=== PATIENT | male | born 1985 | race Caucasian/White ===

== ENCOUNTER 2020-05-13 05:52 | Emergency (ER) | payer OTHER, SELFPAY ==
[2020-05-13 06:00] VITALS: BP 114/66; PULSE 64; RESP 28; TEMP 36.8; O2SAT 100; BMI 23.6
--- NOTE | 2020-05-13 06:54 | ED_ITS ---
HPI - General Adult General Chief complaint: ETOH/Substance Use Stated complaint: AMS Time Seen by Provider: 05/13/20 06:42 Source: EMS Mode of arrival: EMS Limitations: altered mental status History of Present Illness HPI narrative: patient comes to the emergency room with altered mental status. Patient was found outside his home screaming I have been poisoned . The patient's mother called the hospital to give history, the patient is known to be a drug abuser. When EMS arrived, heroin and paraphernalia were found at the patient's side. Patient is unable to give any history, patient actively vomiting, not answering any questions, seems confused. Per EMS, the patient was not given Narcmaryse ROBBINS complaint: substance abuse Related Data Allergies Allergy/AdvReac Type Severity Reaction Status Date / Time No Known Allergies Allergy Unverified 04/07/20 15:46 [No Known Allergies*] Review of Systems Review of Systems: Yes unobtainable due to endotracheal tube and Unobtainable due to mental status PMFSH Past Medical History Medical History (Updated 05/13/20 @ 14:01 by Krista Blount MD) No known health problems Substance abuse Social History Social History Use of substances other than those prescribed or required for medical reasons: Yes Advance Directives: No Physical Exam Vital Signs: Vital Signs: Vital Signs Temp Pulse Resp BP Pulse Ox 05/13/20 12:00 97.4 F 56 15 98/59 L 96 05/13/20 09:58 98.3 F 44 L 16 101/76 05/13/20 08:32 47 L 13 99/40 L 05/13/20 06:00 98.3 F 64 28 H 114/66 100 Body Mass Index 23.6 Appearance: Alert. actively vomiting, not answering any questions, altered mental status Eyes: Pupils equal, round and reactive to light. ENT: Pharynx normal. Neck: Normal inspection. Neck supple. No lymph nodes noted. No crepitus CVS: Normal heart rate and rhythm. Pulses normal. Normal S1 and S2 Respiratory: No respiratory distress. Breath sounds normal. No Wheezing. respiratory rate 30 Abdomen: Soft and nontender. No rigidity. No distention. good BS x4 Skin: Skin warm, mildly diaphoretic Normal skin color. Normal skin turgor. Extremities: No lower extremity edema. No lower extremity edema. No Lacerations. No Rash Neuro: altered mental status, awake No motor deficit. Moving all extermities. Course Course Course Narrative: patient slept until now, 14:00, patient is alert and oriented x3, eating and drinking well, has steady gait. Patient ready for discharge Medical Decision Making Lab Data Result diagrams: 05/13/20 08:30 05/13/20 08:30 Labs: Lab Results 05/13/20 05/13/20 05/13/20 Range/Units 08:30 08:30 08:30 WBC 10.0 (4.8-10.8) X10*3/uL RBC 4.47 L (4.60-5.80) X10*6/uL Hgb 12.7 L (14.0-18.0) g/dl Hct 37.4 L (42-52) % MCV 83.7 (80-98) fL MCH 28.4 (27.0-33.0) pg MCHC 34.0 (31.0-36.0) g/dl RDW 14.6 (11.0-16.0) % Plt Count 216 (160-400) X10*3/uL MPV 11.2 (9.4-12.4) fL Immature Gran % (Auto) 0.4 (0.0-0.4) % Neut % (Auto) 83.0 H (45-73) % Lymph % (Auto) 9.1 L (20-40) % [place] % (Auto) 7.1 (2-11) % Eos % (Auto) 0.2 (0-4) % Baso % (Auto) 0.2 (0-2) % Lymph # (Auto) 0.9 L (1.2-4.9) X10*3/uL [place] # (Auto) 0.7 (0.1-1.2) X10*3/uL Eos # (Auto) 0.0 (0.0-0.4) X10*3/uL Baso # (Auto) 0.0 (0.0-0.2) X10*3/uL Abs Immat Gran (auto) 0.04 H (0.00-0.03) X10*3/uL Absolute Neuts (auto) 8.3 (2.0-8.3) X10*3/uL Absolute Nucleated RBC 0.000 (0.0-0.012) X10*3/uL Nucleated RBC % (auto) 0.0 (0.0-0.2) /100WBC Sodium 141 (135-145) mmol/L Potassium 3.4 (3.3-5.1) mmol/l Chloride 102 (96-108) mmol/L Carbon Dioxide 28 (22-29) mmol/L Anion Gap 14 (12-20) BUN 21 H (9-16) mg/dL Creatinine 0.94 (0.5-1.4) mg/dL Estim Creat Clear Calc 112.1 Estimated GFR > 60 Random Glucose 131 H (60-115) mg/dL Calcium 8.8 (8.4-10.2) mg/dL Total Bilirubin 0.5 (0.0-1.0) mg/dL Direct Bilirubin (0.0-0.5) mg/dL AST 23 (5-37) U/L ALT 17 (0-40) U/L Alkaline Phosphatase 87 (39-117) U/L Total Protein 7.1 (6.5-8.0) g/dL Albumin 3.9 (3.5-5.0) g/dL Ethyl Alcohol < 10 mg/dL 05/13/20 Range/Units 08:30 WBC (4.8-10.8) X10*3/uL RBC (4.60-5.80) X10*6/uL Hgb (14.0-18.0) g/dl Hct (42-52) % MCV (80-98) fL MCH (27.0-33.0) pg MCHC (31.0-36.0) g/dl RDW (11.0-16.0) % Plt Count (160-400) X10*3/uL MPV (9.4-12.4) fL Immature Gran % (Auto) (0.0-0.4) % Neut % (Auto) (45-73) % Lymph % (Auto) (20-40) % [place] % (Auto) (2-11) % Eos % (Auto) (0-4) % Baso % (Auto) (0-2) % Lymph # (Auto) (1.2-4.9) X10*3/uL [place] # (Auto) (0.1-1.2) X10*3/uL Eos # (Auto) (0.0-0.4) X10*3/uL Baso # (Auto) (0.0-0.2) X10*3/uL Abs Immat Gran (auto) (0.00-0.03) X10*3/uL Absolute Neuts (auto) (2.0-8.3) X10*3/uL Absolute Nucleated RBC (0.0-0.012) X10*3/uL Nucleated RBC % (auto) (0.0-0.2) /100WBC Sodium (135-145) mmol/L Potassium (3.3-5.1) mmol/l Chloride (96-108) mmol/L Carbon Dioxide (22-29) mmol/L Anion Gap (12-20) BUN (9-16) mg/dL Creatinine (0.5-1.4) mg/dL Estim Creat Clear Calc Estimated GFR Random Glucose (60-115) mg/dL Calcium (8.4-10.2) mg/dL Total Bilirubin 0.5 (0.0-1.0) mg/dL Direct Bilirubin 0.2 (0.0-0.5) mg/dL AST 26 (5-37) U/L ALT 18 (0-40) U/L Alkaline Phosphatase 87 (39-117) U/L Total Protein 7.2 (6.5-8.0) g/dL Albumin 3.9 (3.5-5.0) g/dL Ethyl Alcohol mg/dL Discharge Plan Discharge Clinical Impression: Substance abuse Patient Disposition: Home, Self-Care Instructions: Polysubstance Abuse (ED) Additional Instructions: please stop using drugs. Please follow-up with your primary care physician tomorrow. If you have any worsening or new symptoms, please return to the emergency room or call 911
[2020-05-13] MEDS: ondansetron HCL 4 MG/2 ML VIAL IVPUSH (07:00)
[2020-05-13] MEDS: 0.9 % Sodium Chloride 1,000 ML 999 ML IVCONT ×2 (07:00→10:02)
--- NOTE | 2020-05-13 07:00 | PC.NURSE ---
PT N/V MODERATE AMT OF FOOD PARTICLES. SLIGHTLY DIAPHORETIC. AWARE.
--- NOTE | 2020-05-13 07:41 | PC.NURSE ---
ptp vn/v mod amt of food particles again with lots of sputum, pt is diaphoretic. md aware to be med with phenergan 12.5mg.
--- NOTE | 2020-05-13 07:46 | PC.NURSE ---
phenergan 12.5mg scanned x 2 (states med is not on pt profile).
[2020-05-13 08:32] VITALS: BP 99/40; PULSE 47; RESP 13
[2020-05-13 08:41] LABS: MANUAL DIFF FLAG NO
[2020-05-13 08:46] LABS: Basophils Percent Auto 0.2 % (0-2); Eosinophils Percent Auto 0.2 % (0-4); Hematocrit 37.4 % (42-52); Hemoglobin 12.7 g/dl (14.0-18.0); Imm Gran Abs Auto 0.04 X10*3/uL (0.00-0.03); Imm Gran Pct Auto 0.4 % (0.0-0.4); Lymphocytes Absolute Auto 0.9 X10*3/uL (1.2-4.9); Lymphocytes Percent Auto 9.1 % (20-40); Mean Corpuscular Hemoglobin 28.4 pg (27.0-33.0); Mean Corpuscular Volume 83.7 fL (80-98); Mean Platelet Volume 11.2 fL (9.4-12.4); Monocytes Absolute Auto 0.7 X10*3/uL (0.1-1.2); Monocytes Percent Auto 7.1 % (2-11); Neutrophils Absolute Auto 8.3 X10*3/uL (2.0-8.3); Platelet Count 216 X10*3/uL (160-400); Red Blood Count 4.47 X10*6/uL (4.60-5.80); Red Cell Distribution Width 14.6 % (11.0-16.0)
[2020-05-13 09:07] LABS: Ethanol < 10 mg/dL
[2020-05-13 09:10] LABS: Alanine Aminotransferase 17 U/L (0-40); Albumin Level 3.9 g/dL (3.5-5.0); Alkaline Phosphatase 87 U/L (39-117); Anion Gap 14 (12-20); Aspartate Amino Transferase 23 U/L (5-37); Bilirubin Total 0.5 mg/dL (0.0-1.0); Blood Urea Nitrogen 21 mg/dL (9-16); Calcium 8.8 mg/dL (8.4-10.2); Carbon Dioxide 28 mmol/L (22-29); Chloride 102 mmol/L (96-108); Creatinine Clr Calc Pharmacy 112.1; Estimated Glomerular Filt Rate > 60; Glucose Random 131 mg/dL (60-115); Potassium 3.4 mmol/l (3.3-5.1); Sodium 141 mmol/L (135-145); Total Protein 7.1 g/dL (6.5-8.0)
[2020-05-13 09:11] LABS: Alanine Aminotransferase 18 U/L (0-40); Albumin Level 3.9 g/dL (3.5-5.0); Alkaline Phosphatase 87 U/L (39-117); Aspartate Amino Transferase 26 U/L (5-37); Bilirubin Direct 0.2 mg/dL (0.0-0.5); Bilirubin Total 0.5 mg/dL (0.0-1.0); Total Protein 7.2 g/dL (6.5-8.0)
[2020-05-13 09:58] VITALS: BP 101/76; PULSE 44; RESP 16; TEMP 36.8
[2020-05-13 12:00] VITALS: BP 98/59; PULSE 56; RESP 15; TEMP 36.3; O2SAT 96
--- NOTE | 2020-05-13 13:20 | PC.NURSE ---
pt tolerated po fluids and saltines well. aware.
[2020-05-13 13:57] VITALS: BP 121/67; PULSE 57; RESP 13; TEMP 36.7; O2SAT 97
--- NOTE | 2020-05-13 15:03 | PC.NURSE ---
PT PROVDED D/C PAPERWORK BY VIVIANE QUINTANA, PT REFUSING TO LEAVE, SECURITY TO BEDSIDE TO ENCOURAGE PT TO LEAVE ON OWN ACCORD, PT CONTINUES TO REFUSE, [facility] CONTACTED TO D/C PT.
== END 2020-05-13 16:18 | disposition home or self-care (01) ==
PROVIDERS: Student in an Organized Health Care Education/Training Program; Emergency Provider Emergency Medicine
DX: F19.10 Other psychoactive substance abuse, uncomplicated (principal)
CPT/HCPCS: 36415; 80053; 80076; 80320; 82248; 85025; 96361; 96374; 96375; 99284; J2405

== ENCOUNTER 2020-11-17 18:31 | Emergency (ER) | payer OTHER, SELFPAY ==
--- NOTE | ~2020-11-17 | US_ITS ---
EXAMINATION: US ABDOMEN LIMITED CLINICAL INFORMATION: Elevated liver enzymes. COMPARISON: None TECHNIQUE: Real-time imaging of the right upper quadrant abdominal viscera. FINDINGS: PANCREAS: Normal. LIVER: Normal. The liver is normal in size. The liver contour is normal. Parenchymal echogenicity is normal. No focal hepatic lesion. There is no intrahepatic biliary duct dilatation seen. GALLBLADDER: The gallbladder is contracted without evidence of stones, sludge, polyps, wall thickening or pericholecystic fluid. COMMON BILE DUCT: Normal in caliber measuring 0.4 cm in diameter. RIGHT KIDNEY: [place] 0.7 x 0.4 x 0.6 cm simple cyst.. No hydronephrosis. No renal calculi or solid parenchymal lesions. The kidney measures 10.9 cm in maximum dimension. FREE FLUID: None. US/US abdomen limited IMPRESSION: Normal appearance of the liver. Subcentimeter simple cyst of the right kidney. No follow-up recommended.
[2020-11-17 19:33] VITALS: BP 130/78; PULSE 83; RESP 16; TEMP 36.3; O2SAT 99; BMI 24.3
--- NOTE | 2020-11-17 21:09 | PC.NURSE ---
Leatha Goyal,SCIENTOLOGIST at bedside for primary evaluation at this time.
--- NOTE | 2020-11-17 21:16 | PC.NURSE ---
Per provider, plan for discharge with follow up with GI specialist outpatient. Family at bedside, pt remains calm/cooperative/pleasant.
--- NOTE | 2020-11-17 21:18 | ED.GENADULT ---
HPI - General Adult General Source: patient, family and RN notes reviewed Mode of arrival: ambulatory Limitations: no limitations History of Present Illness HPI narrative: 35 years old male here today for complaining of rectal pain. Patient reports that the pain is so severe sometimes that he passes out from it. Denies rectal bleed or melena. Reports long history of constipation on stool softeners and laxative. Patient reports that his stools are sometimes soft and sometimes hard. Patient reports that this is been going on for some time. Patient reports that he has a family history of cancer with his uncle and his mother. His mother had a cervical cancer. His mother has a history of hemorrhoids. Related Data Previous Rx's Medication Instructions Recorded hydrocortisone [Anusol-HC] 1 appl MI BEDTIME PRN #30 g 11/18/20 hydrocortisone acetate [Anusol-HC] 25 mg MI DAILY PRN #12 ea 11/18/20 Allergies Allergy/AdvReac Type Severity Reaction Status Date / Time No Known Allergies Allergy Verified 11/17/20 19:37 [No Known Allergies*] Review of Systems Constitutional: Constitutional: Denies weight gain and Denies weight loss Cardiovascular: Cardiovascular: Reports no additional cardiovascular complaints Respiratory: Respiratory: Reports no additional respiratory complaints Gastrointestinal: Gastrointestinal: Denies abdominal pain, Denies belching, Denies melena, Denies bloating, Denies change in bowel habits, Denies dyspepsia, Denies heartburn, Denies nausea, Denies vomiting and Reports other (Rectal pain) Neurologic: Reports system reviewed and no additional complaints, except as documented Psychiatric: Psychiatric: Reports no additional psychiatric complaints PMFSH Past Medical History Medical History (Updated 11/19/20 @ 00:01 by Background Daemon) No known health problems Substance abuse Social History Social History Alcohol intake: never Substance Use Type: Marijuana Physical Exam Vital Signs: Vital Signs: Last Vital Signs Temp 97.4 F 11/17/20 19:33 Pulse 83 11/17/20 19:33 Resp 16 11/17/20 19:33 BP 130/78 11/17/20 19:33 Pulse Ox 99 11/17/20 19:33 Body Mass Index 24.3 Const: General: healthy appearing, no acute distress and well developed Nutritional Appearance: well nourished Orientation/consciousness: patient oriented x3 Neck: Neck: Yes normal visual inspection, Yes full ROM and Yes trachea midline Thyroid: Thyroid normal Resp: Auscultation: clear to auscultation bilaterally Cardio: Rate: regular rate Rhythm: regular rhythm GI: Inspection: Yes normal to inspection and No distended Palpation (GI): No hepatosplenomegaly present Auscultation: normal bowel sounds Rectal Exam - Male: Yes Internal hemorrhoid(s) present Skin: General skin exam: elasticity normal, turgor normal and dry skin Neuro: General: patient oriented x3 Course Course Course Narrative: 35-year-old male here today for complaining of rectal pain. He has a history of constipation. Denies any abdominal pain, discomfort, bloating, nausea, diarrhea. Patient reports that occasionally he has so much pain in his rectum that he feels like fainting. Reevaluation(s) Reevaluation #1: CBCs normal, patient's liver enzymes elevated: Total bili 2.5, AST 398, ALT 494, alk phos 273. Will alter abdominal ultrasound. Patient denies having any abdominal discomfort. Assessment negative for jaundice, pruritus. Patient denies drinking alcohol. Reevaluation #2: Abdominal ultrasound without acute findings. Discussed with patient his abnormal liver enzymes. Patient will follow up with PCP and Gastroenterology for further workup. Patient denies any rectal pain while in the emergency department. Vital signs stable. No syncope, presyncope, chest pain. I will have him follow up with Cardiology to further investigate syncopal episodes. Medical Decision Making Lab Data Result diagrams: 11/17/20 22:01 11/17/20 22:01 Labs: Lab Results 11/17/20 11/17/20 Range/Units 22:01 22:01 WBC 4.9 (4.8-10.8) X10*3/uL RBC 4.94 (4.60-5.80) X10*6/uL Hgb 14.3 (14.0-18.0) g/dl Hct 43.1 (42-52) % MCV 87.2 (80-98) fL MCH 28.9 (27.0-33.0) pg MCHC 33.2 (31.0-36.0) g/dl RDW 13.9 (11.0-16.0) % Plt Count 235 (160-400) X10*3/uL MPV 11.3 (9.4-12.4) fL Immature Gran % (Auto) 0.2 (0.0-0.4) % Neut % (Auto) 70.0 (45-73) % Lymph % (Auto) 24.5 (20-40) % [place] % (Auto) 4.5 (2-11) % Eos % (Auto) 0.6 (0-4) % Baso % (Auto) 0.2 (0-2) % Lymph # (Auto) 1.2 (1.2-4.9) X10*3/uL [place] # (Auto) 0.2 (0.1-1.2) X10*3/uL Eos # (Auto) 0.0 (0.0-0.4) X10*3/uL Baso # (Auto) 0.0 (0.0-0.2) X10*3/uL Abs Immat Gran (auto) 0.01 (0.00-0.03) X10*3/uL Absolute Neuts (auto) 3.5 (2.0-8.3) X10*3/uL Absolute Nucleated RBC 0.000 (0.0-0.012) X10*3/uL Nucleated RBC % (auto) 0.0 (0.0-0.2) /100WBC Sodium 137 (135-145) mmol/L Potassium 4.0 (3.3-5.1) mmol/L Chloride 100 (96-108) mmol/L Carbon Dioxide 28 (22-29) mmol/L Anion Gap 13 (12-20) BUN 10 D (9-16) mg/dL Creatinine 1.06 (0.5-1.4) mg/dL Estim Creat Clear Calc 96.3 Estimated GFR > 60 Random Glucose 113 (60-115) mg/dL Calcium 9.0 (8.4-10.2) mg/dL Total Bilirubin 2.5 H (0.0-1.0) mg/dL AST 398 H (5-37) U/L ALT 494 H (0-40) U/L Alkaline Phosphatase 273 H D (39-117) U/L Total Protein 7.1 (6.5-8.0) g/dL Albumin 4.1 (3.5-5.0) g/dL Imaging Data US - abdomen: Radiologist's impression: FINDINGS: PANCREAS: Normal. LIVER: Normal. The liver is normal in size. The liver contour is normal. Parenchymal echogenicity is normal. No focal hepatic lesion. There is no intrahepatic biliary duct dilatation seen. GALLBLADDER: The gallbladder is contracted without evidence of stones, sludge, polyps, wall thickening or pericholecystic fluid. COMMON BILE DUCT: Normal in caliber measuring 0.4 cm in diameter. RIGHT KIDNEY: [place] 0.7 x 0.4 x 0.6 cm simple cyst.. No hydronephrosis. No renal calculi or solid parenchymal lesions. The kidney measures 10.9 cm in maximum dimension. FREE FLUID: None. US/US abdomen limited IMPRESSION: Normal appearance of the liver. Subcentimeter simple cyst of the right kidney. No follow-up recommended. Discharge Plan Discharge Clinical Impression: Anal or rectal pain, Syncope Patient Disposition: Home, Self-Care Instructions: Syncope (ED), Rectal Pain (ED) Additional Instructions: Your seen here today for rectal pain. Continue using your stool softeners and laxatives to help you go to the bathroom. You are given as script for Anusol suppository and cream. Follow-up with Gastroenterology Department for your elevated liver enzymes. Your ultrasound was normal. Please follow-up with Cardiology for syncope (passing out). You may return to emergency department if you experience any concerning symptoms. Prescriptions: New hydrocortisone acetate [Anusol-HC] 25 mg suppository 25 mg MI DAILY PRN (Reason: hemorrhoids) Qty: 12 RF: 0 hydrocortisone [Anusol-HC] 2.5 % cream with perineal applicator 1 appl MI BEDTIME PRN (Reason: hemorrhoids) Qty: 30 RF: 0 Referrals: Ivonne Bauman ANP-C [Nurse Practitioner] - 2 days Klaus Alvarez MD [Physician] - 2 days Interventions: ED Discharge Assessment Last Done: 11/18/20 01:29 Discharge Date/Time: 11/18/20 01:31
[2020-11-17 22:05] LABS: MANUAL DIFF FLAG NO
[2020-11-17 22:07] LABS: Basophils Percent Auto 0.2 % (0-2); Eosinophils Percent Auto 0.6 % (0-4); Hematocrit 43.1 % (42-52); Hemoglobin 14.3 g/dl (14.0-18.0); Imm Gran Abs Auto 0.01 X10*3/uL (0.00-0.03); Imm Gran Pct Auto 0.2 % (0.0-0.4); Lymphocytes Absolute Auto 1.2 X10*3/uL (1.2-4.9); Lymphocytes Percent Auto 24.5 % (20-40); Mean Corpuscular HGB Conc 33.2 g/dl (31.0-36.0); Mean Corpuscular Hemoglobin 28.9 pg (27.0-33.0); Mean Corpuscular Volume 87.2 fL (80-98); Mean Platelet Volume 11.3 fL (9.4-12.4); Monocytes Absolute Auto 0.2 X10*3/uL (0.1-1.2); Monocytes Percent Auto 4.5 % (2-11); Neutrophils Absolute Auto 3.5 X10*3/uL (2.0-8.3); Platelet Count 235 X10*3/uL (160-400); Red Blood Count 4.94 X10*6/uL (4.60-5.80); Red Cell Distribution Width 13.9 % (11.0-16.0); White Blood Count 4.9 X10*3/uL (4.8-10.8)
[2020-11-17 22:33] LABS: Alanine Aminotransferase 494 U/L (0-40); Albumin Level 4.1 g/dL (3.5-5.0); Alkaline Phosphatase 273 U/L (39-117); Anion Gap 13 (12-20); Aspartate Amino Transferase 398 U/L (5-37); Bilirubin Total 2.5 mg/dL (0.0-1.0); Blood Urea Nitrogen 10 mg/dL (9-16); Carbon Dioxide 28 mmol/L (22-29); Chloride 100 mmol/L (96-108); Creatinine Clr Calc Pharmacy 96.3; Estimated Glomerular Filt Rate > 60; Glucose Random 113 mg/dL (60-115); Sodium 137 mmol/L (135-145); Total Protein 7.1 g/dL (6.5-8.0)
--- NOTE | 2020-11-18 | PC.NURSE ---
LABS EXPLAINED TO PT BY LACI BOURNE AND PT AGREE TO HAVING AN US OF HIS ABD.
== END 2020-11-18 01:31 | disposition home or self-care (01) ==
PROVIDERS: Nurse Practitioner Family; Emergency Provider Internal Medicine
DX: K62.89 Other specified diseases of anus and rectum (principal); R55 Syncope and collapse; R79.89 Other specified abnormal findings of blood chemistry; R10.30 Lower abdominal pain, unspecified; F12.90 Cannabis use, unspecified, uncomplicated; Z79.899 Other long term (current) drug therapy
CPT/HCPCS: 36415; 76705; 80053; 85025; 99284